=== PATIENT | female | born 1990 | race Caucasian/White ===

== ENCOUNTER → 2024-05-27 14:39 | Outpatient (REF) | payer BC, SELFPAY | LOC: PNTC 14:39 | PROVIDERS: ATTENDING PHYSICIAN Obstetrics & Gynecology | DX: Z36.0 Encounter for antenatal screening for chromosomal anomalies (principal); Z36.82 Encounter for antenatal screening for nuchal translucency; O09.519 Supervision of elderly primigravida, unspecified trimester | CPT/HCPCS: 76801; 76813 ==

== ENCOUNTER → 2024-07-22 15:13 | Outpatient (REF) | payer BC, SELFPAY | LOC: PNTC 15:13 | PROVIDERS: ATTENDING PHYSICIAN Obstetrics & Gynecology | DX: O09.529 Supervision of elderly multigravida, unspecified trimester (principal) | CPT/HCPCS: 76811 ==

== ENCOUNTER → 2024-09-16 10:55 | Outpatient (REF) | payer BC, SELFPAY | LOC: PNTC 10:55 | PROVIDERS: ATTENDING PHYSICIAN Obstetrics & Gynecology | DX: O09.522 Supervision of elderly multigravida, second trimester (principal) | CPT/HCPCS: 36415; 86850; 86900; 86901; 96372; J2790 ==

== ENCOUNTER → 2024-11-11 14:44 | Outpatient (REF) | payer BC, SELFPAY | LOC: PNTC 14:44 | PROVIDERS: ATTENDING PHYSICIAN Obstetrics & Gynecology | DX: O09.529 Supervision of elderly multigravida, unspecified trimester (principal); O99.210 Obesity complicating pregnancy, unspecified trimester; O09.819 Supervision of pregnancy resulting from assisted reproductive technology, unspecified trimester; Q27.0 Congenital absence and hypoplasia of umbilical artery | CPT/HCPCS: 59025; 76816 ==

== ENCOUNTER → 2024-11-18 14:26 | Outpatient (REF) | payer BC, SELFPAY | LOC: PNTC 14:26 | PROVIDERS: ATTENDING PHYSICIAN Obstetrics & Gynecology | DX: O09.529 Supervision of elderly multigravida, unspecified trimester (principal); O09.819 Supervision of pregnancy resulting from assisted reproductive technology, unspecified trimester; O99.210 Obesity complicating pregnancy, unspecified trimester; O69.5XX0 Labor and delivery complicated by vascular lesion of cord, not applicable or unspecified | CPT/HCPCS: 36415; 59025 ==

== ENCOUNTER → 2024-11-25 14:46 | Outpatient (REF) | payer BC, SELFPAY | LOC: PNTC 14:46 | PROVIDERS: ATTENDING PHYSICIAN Obstetrics & Gynecology | DX: O09.529 Supervision of elderly multigravida, unspecified trimester (principal); O09.819 Supervision of pregnancy resulting from assisted reproductive technology, unspecified trimester; O99.210 Obesity complicating pregnancy, unspecified trimester; Q27.0 Congenital absence and hypoplasia of umbilical artery | CPT/HCPCS: 59025 ==

== ENCOUNTER 2024-12-01 12:04 | Inpatient (IN) | payer BC, SELFPAY ==
[2024-12-01 12:24] VITALS: BP 128/61; BMI 36.1
[2024-12-01 12:59] LABS: % Basophils 0.7 % (0-2); % Eosinophils 1.2 % (0-6); % Lymphocytes 17.4 % (20.5-51.1); % Monocytes 8.5 % (1.7-9.3); % Neutrophils 71.2 % (42.2-75.2); Absolute Basophils 0.1 10^3/uL (0-0.2); Absolute Eosinophils 0.1 10^3/uL (0-0.7); Absolute Immature Granulocytes 0.1 10^3/uL (0-0.05); Absolute Lymphocytes 2.1 10^3/uL (1.2-3.4); Absolute Neutrophils 8.5 10^3/uL (1.4-6.5); Hematocrit 36.6 % (37.0-47.0); Hemoglobin 12.5 g/dL (12.0-16.0); Mean Corp Hgb Conc. 34.2 g/dL (33.0-37.0); Mean Corpuscular Hgb 28.9 pg (27.0-31.0); Mean Corpuscular Volume 84.7 fL (81.0-99.0); Mean Platelet Volume 9.3 fL (7.4-10.4); Nucleated Red Blood Cells % 0 %; Platelet Count 306 10^3/uL (130-400); Red Blood Cell Count 4.32 10^6/uL (4.20-5.40); Red Cell Dist. Width 15.9 % (11.5-14.5); White Blood Cell Count 11.9 10^3/uL (4.8-10.8)
[2024-12-01] MEDS: LR 1000 IV (17:35)
[2024-12-01] MEDS: PITOCIN 30 UNITS/NSS 500 ML IV (17:36)
[2024-12-01] MEDS: FENTANYL/BUPIVACAINE 100 EPIDURAL (20:36)
[2024-12-01] MEDS: SUBLIMAZE 100 MCG EPIDURAL (20:36)
[2024-12-02] MEDS: TYLENOL 1000 MG PO (03:35)
[2024-12-02] MEDS: BICITRA 30 ML PO (03:35)
[2024-12-02] MEDS: CLEOCIN 50 IV (03:36)
[2024-12-02] MEDS: GENTAMICIN 60 MG IV (03:55)
[2024-12-02] MEDS: ZITHROMAX INFUSION 250 IV (04:28)
[2024-12-02 04:37] LABS: Cord VBG HCO3 - POC 22 mmol/L; Cord VBG O2 Sat % - POC 56.2 %; Cord VBG pCO2 - POC 36 mmHg; Cord VBG pH - POC 7.38; Cord VBG pO2 - POC 30 mmHg
[2024-12-02 05:41] LABS: Hematocrit 32.8 % (37.0-47.0); Hemoglobin 10.7 g/dL (12.0-16.0)
[2024-12-02 10:15] LABS: Hematocrit 32.7 % (37.0-47.0); Hemoglobin 11.1 g/dL (12.0-16.0); Mean Corp Hgb Conc. 33.9 g/dL (33.0-37.0); Mean Corpuscular Hgb 28.5 pg (27.0-31.0); Mean Corpuscular Volume 83.8 fL (81.0-99.0); Mean Platelet Volume 9.6 fL (7.4-10.4); Platelet Count 232 10^3/uL (130-400); Red Cell Dist. Width 15.9 % (11.5-14.5); White Blood Cell Count 20.3 10^3/uL (4.8-10.8)
--- NOTE | 2024-12-02 11:07 | W.PN.ANS.POP ---
Anesthesia Post Operative
- Anesthesia Post Op Note
Vital Signs Stable-See Nursing Note: Yes
Airway Patent: Yes
Adequate Pain Control: Yes
Change in Mental Status: No
Current Postoperative Nausea & Vomiting: No
Anesthesia Complications: No
General Anesthetic Recall: No
Unplanned Admission: No
Post Op Hydration Adequate: Yes
- -
Pt OOB to chair with no anesthesia related c/o at time of post op visit.
[2024-12-02] MEDS: PRENATAL PLUS 1 TABLET PO (12:24)
[2024-12-02] MEDS: FEOSOL 325 MG PO (12:24)
[2024-12-02] MEDS: TORADOL 15 MG IV ×3 (12:37→23:39)
[2024-12-02 15:14] LABS: Cord ABG B.E. - POC 0.8 mmol/L; Cord ABG HCO3 - POC 28 mmol/L; Cord ABG pCO2 - POC 58 mmHg; Cord ABG pO2 - POC < 40 mmHg
[2024-12-02] MEDS: PERCOCET 5/325 1 TABLET PO (16:29)
[2024-12-03 04:17] LABS: Hematocrit 28.4 % (37.0-47.0); Hemoglobin 9.8 g/dL (12.0-16.0); Mean Corp Hgb Conc. 34.5 g/dL (33.0-37.0); Mean Corpuscular Hgb 28.9 pg (27.0-31.0); Mean Corpuscular Volume 83.8 fL (81.0-99.0); Mean Platelet Volume 9.6 fL (7.4-10.4); Platelet Count 214 10^3/uL (130-400); Red Blood Cell Count 3.39 10^6/uL (4.20-5.40); Red Cell Dist. Width 16.7 % (11.5-14.5); White Blood Cell Count 14.7 10^3/uL (4.8-10.8)
[2024-12-03] MEDS: TORADOL 15 MG IV (05:51)
[2024-12-03] MEDS: TYLENOL 650 MG PO ×2 (06:02→19:42)
[2024-12-03 11:30] LABS: Syphilis/T. pallidum Ab Reflex Negative (Negative)
[2024-12-03] MEDS: PRENATAL PLUS 1 TABLET PO (13:14)
[2024-12-03] MEDS: FEOSOL 325 MG PO (13:14)
[2024-12-03] MEDS: RHOGAM 900 MCG IM (15:00)
[2024-12-03] MEDS: MOTRIN 600 MG PO (19:43)
[2024-12-04] MEDS: MOTRIN 600 MG PO ×4 (01:45→21:05)
[2024-12-04] MEDS: TYLENOL 650 MG PO ×5 (01:45→21:05)
[2024-12-04] MEDS: PRENATAL PLUS 1 TABLET PO (12:06)
[2024-12-04] MEDS: FEOSOL 325 MG PO (12:06)
[2024-12-05] MEDS: TYLENOL 650 MG PO ×2 (03:19→09:10)
[2024-12-05] MEDS: MOTRIN 600 MG PO ×2 (03:19→09:05)
[2024-12-05] MEDS: SENOKOT-S 1 TABLET PO (09:05)
[2024-12-05] MEDS: PRENATAL PLUS 1 TABLET PO (09:05)
--- NOTE | 2024-12-05 10:55 | W.DS.TRANS ---
DC Summary - Certified Physician'S Assistant
-
Discharge Instructions:
Discharge Diagnosis/Procedures primary cs
Instructions:
Stand-Alone Forms: LDRP Delivery
Changes to Home Medications: No
Discharge Medications:
DC Medications w/original date entered in [facility]
vitamin-ferrous fumarate 28 mg iron-folic acid 800 mcg tablet 1 ea PO NOON Supplement 01/04/21
famotidine 10 mg tablet (Pepcid AC) 10 mg PO PRN PRN REFLUX 12/01/24
ferrous sulfate 27 mg iron tablet 27 mg PO NOON 12/01/24
ibuprofen 600 mg tablet 600 mg PO Q6HPRN PRN cramps #90 tabs 12/05/24
Home Medication Changes
Pending Results: No
== END 2024-12-05 14:14 | disposition home or self-care (01) | DRG 787 ==
LOC: LDRP 12:04
PROVIDERS: ADMITTING PHYSICIAN Obstetrics & Gynecology
PROC: 4A1HXCZ Monitoring of Products of Conception, Cardiac Rate, External Approach (ICD-10-PCS; 2024-12-02)
PROC: 30233N1 Transfusion of Nonautologous Red Blood Cells into Peripheral Vein, Percutaneous Approach (ICD-10-PCS; 2024-12-02)
PROC: 10D00Z1 Extraction of Products of Conception, Low, Open Approach (ICD-10-PCS; 2024-12-02)
PROC: 3E0234Z Introduction of Serum, Toxoid and Vaccine into Muscle, Percutaneous Approach (ICD-10-PCS; 2024-12-03)
DX: O76 Abnormality in fetal heart rate and rhythm complicating labor and delivery (principal); N99.61 Intraoperative hemorrhage and hematoma of a genitourinary system organ or structure complicating a genitourinary system procedure; O99.354 Diseases of the nervous system complicating childbirth; O99.214 Obesity complicating childbirth; O69.89X0 Labor and delivery complicated by other cord complications, not applicable or unspecified; G43.909 Migraine, unspecified, not intractable, without status migrainosus; E28.2 Polycystic ovarian syndrome; O99.284 Endocrine, nutritional and metabolic diseases complicating childbirth; O26.893 Other specified pregnancy related conditions, third trimester; O67.8 Other intrapartum hemorrhage; Z67.41 Type O blood, Rh negative; Z37.0 Single live birth; Z3A.39 39 weeks gestation of pregnancy; Z88.0 Allergy status to penicillin; Z88.1 Allergy status to other antibiotic agents
CPT/HCPCS: 88307; 85014; 85018; 85025; 85027; 85460; 85461; 86780; 86850; 86900; 86901; 86920; 87491; 87591; J2790; P9016; P9045